=== PATIENT | female | born 1955 | race Two or more races ===

== ENCOUNTER 2018-06-09 21:00 | Emergency (ER) | payer OTHER ==
[~2018-06-09] VITALS: Ht 144.8 cm; Wt 58.5 kg
== END 2018-06-09 22:52 | disposition home or self-care (01) ==
LOC: ER 21:00
DX: M75.51 Bursitis of right shoulder (principal)

== ENCOUNTER 2018-07-17 07:30 | Outpatient (CLI) | payer OTHER | END 2018-07-17 07:51 | disposition home or self-care (01) | LOC: MRI 07:30 | DX: M25.511 Pain in right shoulder (principal) | CPT/HCPCS: 73218 ==

== ENCOUNTER 2018-07-27 10:20 | Outpatient (CLI) | payer OTHER | END 2018-07-27 10:42 | disposition home or self-care (01) | LOC: RAD 10:20 | DX: M25.511 Pain in right shoulder (principal) ==

== ENCOUNTER 2018-08-09 10:16 | Outpatient (CLI) | payer OTHER | END 2018-08-09 10:38 | disposition home or self-care (01) | LOC: SONOGRAMA 10:16 | DX: N84.0 Polyp of corpus uteri (principal) ==

== ENCOUNTER 2018-12-22 17:28 | Emergency (ER) | payer OTHER ==
[~2018-12-22] VITALS: Ht 144.8 cm; Wt 59.0 kg
== END 2018-12-22 22:10 | disposition home or self-care (01) ==
LOC: ER 17:28
DX: J06.9 Acute upper respiratory infection, unspecified (principal)

== ENCOUNTER 2022-10-18 22:47 | Emergency (ER) | payer OTHER ==
[~2022-10-18] VITALS: Ht 144.8 cm; Wt 56.2 kg
[2022-10-18] MEDS ORDERED: ATORVASTATIN CA40 MG PO (23:15)
[2022-10-19] MEDS ORDERED: NABUMETONE750 MG PO (01:59)
== END 2022-10-19 02:00 | disposition home or self-care (01) ==
LOC: ER 22:47
DX: S99.821A Other specified injuries of right foot, initial encounter (principal); W22.8XXA Striking against or struck by other objects, initial encounter; Y93.89 Activity, other specified; Y92.018 Other place in single-family (private) house as the place of occurrence of the external cause

== ENCOUNTER 2023-07-06 09:01 | Emergency (ER) | payer OTHER ==
[~2023-07-06] VITALS: Ht 157.5 cm; Wt 59.0 kg
[~2023-07-06 09:01] MED LIST: ALLERGY RELIE15.8 ML NASAL; ATORVASTATIN CA40 MG PO; NABUMETONE750 MG PO; TUSNEL LIQUID178 ML PO; ZYRTEC10 M3 PO
[2023-07-06 10:36] LABS: HEMATOCRIT 34.5 % (36.0-45.00); HEMOGLOBIN 11.7 g/dL (12.0-15.00); MEAN CELL VOLUME 86.6 fL (80.00-100.00); MEAN CORPUSCULAR HEMOGLOBIN 29.2 pg (27.00-32.0); MEAN CORPUSCULAR HGB CONC 33.7 g/dl (32.0-36.0); PLATELET COUNT 196 K/uL (150-450); RED BLOOD COUNT 3.99 M/uL (4.00-6.00); RED CELL DISTRIBUTION WIDTH 13.6 % (11.5-14.5)
[2023-07-06] MEDS ORDERED: IVERMECTIN3 MG PO (10:54)
[2023-07-06] MEDS ORDERED: ALLEGRA ALLERG180 MG PO (10:54)
[2023-07-06] MEDS ORDERED: MEDROLPACK PO (10:54)
== END 2023-07-06 10:57 | disposition home or self-care (01) ==
LOC: ER 09:02
PROVIDERS: General Practice
DX: R21 Rash and other nonspecific skin eruption (principal)
CPT/HCPCS: 36415; 96365; 99284; J1200; J2930

== ENCOUNTER 2024-03-07 08:32 | Outpatient (CLI) | payer OTHER ==
[~2024-03-07 08:32] MED LIST changes: +ALLEGRA ALLERG180 MG PO; +IVERMECTIN3 MG PO; +MEDROLPACK PO
== END 2024-03-07 08:34 | disposition home or self-care (01) ==
LOC: SONOGRAMA 08:32
PROVIDERS: ATTEND Pathology Anatomic Pathology & Clinical Pathology
DX: D34 Benign neoplasm of thyroid gland (principal); E07.89 Other specified disorders of thyroid; E04.1 Nontoxic single thyroid nodule